=== PATIENT | male | born 1975 | race African-American/Black ===

== ENCOUNTER 2017-04-02 21:22 | Emergency (ER) | payer MEDICAID ==
[~2017-04-02] VITALS: Ht 180.3 cm; Wt 81.6 kg
[2017-04-02 21:30] VITALS: BP 121/77
[2017-04-02] MEDS ORDERED: Lidocaine 1% MPF 10mg/ml 5ml INJ ONE (21:45)
[2017-04-02] MEDS ORDERED: Lidocaine 1% MPF 10mg/ml 5ml ONE (21:46)
--- NOTE | 2017-04-02 22:14 | Emergency Room Report ---
History of Present Illness General Chief Complaint: Multiple Trauma/Fall Source: Patient Present Illness HPI Patient present with complaints of laceration to the right hand This occurred just about an hour prior to arrival Patient reports falling into a metal object Denies any headache or visual changes denies any neck pain denies any chest pressures of breath Pain is localized to the lacerated area 5/10 worse with touch and movement Patient last tetanus shot was 7 years ago Allergies: Coded Allergies: No Known Allergies (Unverified , 04/02/17) Patient History Past Medical History: see triage record Pertinent Family History: none Reviewed Nursing Documentation: PMH: Agreed, PSxH: Agreed Nursing Documentation-PMH Past Medical History: No Stated History Review of Systems All Other Systems: negative except mentioned in HPI Physical Exam Vital Signs Date Time Temp Pulse Resp B/P Pulse Ox O2 Delivery O2 Flow Rate FiO2 04/02/17 21:24 98.4 92 16 121/77 96 Sp02 EP Interpretation: reviewed, normal General Appearance: well appearing, no apparent distress Head: normocephalic, atraumatic Eyes: bilateral eye EOMI, bilateral eye PERRL ENT: normal pharynx Neck: supple, thyroid normal Respiratory: lungs clear Cardiovascular #1: regular rate, rhythm Gastrointestinal: non tender, soft Genitourinary: no CVA tenderness Musculoskeletal: other - Patient has a jagged laceration to the hypothenar eminence on the right hand proximal area, appears to be puncture component along with laceration, total length is approximately 3 cm Neurologic: alert, oriented x3, responsive Skin: normal color, no rash, other - Laceration as above Lymphatic: no adenopathy Procedures Laceration/Wound Repair Laceration/Wound Repair : Consent: Verbal Wound Location: upper extremity Wound's Depth, Shape: into muscle, irregular Wound Length (cm): 3 Wound Explored: contaminated Irrigated w/ Saline (ccs): 200 Betadine Prep?: Yes Anesthesia: 1% Lidocaine Volume Anesthetic (ccs): 4 Wound Debrided: moderate Wound Repaired With: sutures Suture Size/Type: 4:0 Number of Sutures: 6 Layer Closure?: No Patient Tolerated: Well Complications: None Progress After copious irrigation local sedation was performed with lidocaine injection, patient had 6, 4.0 monofilament sutures placed for appropriate approximation, there was also a small piece of skin that was still connected to a partial aspect of the hand which had to be removed. There was also 2 Steri-Strips applied to a more superficial aspect of the laceration Medical Decision Making Diagnostic Impression: Primary Impression: Hand laceration ER Course Patient had acute intervention with the hand as noted above with sutures X-ray imaging does not show any obvious foreign body Patient had tetanus shot updated Was given first antibiotic her given the complexity of the laceration the appearance Patient requires close outpatient followup Other X-Ray Diagnostic Results Other X-Ray Diagnostic Results : EP Interpretation: Yes Findings: no fractures, no dislocation, no soft tissue swelling Number of Views: 3 - right hand Last Vital Signs Date Time Temp Pulse Resp B/P Pulse Ox O2 Delivery O2 Flow Rate FiO2 04/02/17 21:30 98.4 89 16 121/77 96 Status: improved Disposition: HOME, SELF-CARE Condition: Improved Scripts Cephalexin* (KEFLEX*) 500 Mg Capsule 500 MG ORAL Q6H, #28 CAP 0 Refills Prov: LESIA PAREDES D.O. 04/02/17 Additional Instructions: Patient is provided with the discharge instructions notified to follow up with primary doctor in the next 2-3 days otherwise return to the er with any worsening symptoms. Please note that this report is being documented using [employer] technology. This can lead to erroneous entry secondary to incorrect interpretation by the dictating instrument. LESIA PAREDES D.O. April 02, 2017 22:14
[2017-04-02] MEDS ORDERED: Cephalexin 500mg cap ORAL ONE (22:15)
[2017-04-02] MEDS ORDERED: TdaP Vaccine 0.5ml Syr IM ONE (22:15)
[2017-04-02] MEDS ORDERED: KEFLEX500 MG ORAL (22:17)
[2017-04-02 22:32] VITALS: BP 121/77
--- NOTE | 2017-04-03 09:20 | Diagnostic Imaging Report ---
Indications: Fall, injury to medial aspect of palm of right hand with laceration, pain Technique: 3 views right hand. Findings: Comparison: None Hypokinetic soft tissues are mildly swollen. No acute fracture, dislocation, joint space widening , soft tissue foreign body/gas, or other acute changes are identified. Chronic appearing contour deformity fifth metacarpal head and neck. Prominent osteophyte at the margin of the fourth distal interphalangeal joint. No other chronic changes are demonstrated. IMPRESSION: Hyper thenar soft tissue swelling. No underlying acute fracture or foreign body. Old, healed fifth metacarpal boxer's fracture Fourth distal interphalangeal degenerative arthropathy .
== END 2017-04-02 22:32 | disposition home or self-care (01) ==
LOC: EDBD 21:22 → EMR 21:55
DX: S61.411A Laceration without foreign body of right hand, initial encounter (principal); W19.XXXA Unspecified fall, initial encounter; Y92.89 Other specified places as the place of occurrence of the external cause; Z23 Encounter for immunization; M19.041 Primary osteoarthritis, right hand
CPT/HCPCS: 12002; 73130; 90471; 90715; 96372; 99284; Z7502

== ENCOUNTER 2019-05-07 21:58 | Emergency (ER) | payer MEDICAID, SELFPAY ==
[~2019-05-07] VITALS: Ht 180.3 cm; Wt 86.2 kg
[~2019-05-07 21:58] MED LIST: KEFLEX500 MG ORAL
[2019-05-07 22:15] VITALS: BP 118/72
[2019-05-07] MEDS ORDERED: Tetanus/Diptheria/Pertussis IM ONE ×2 (22:15→22:28)
[2019-05-07] MEDS ORDERED: Bacitracin Oint UD TOPIC ONE ×2 (22:15→22:28)
--- NOTE | 2019-05-07 22:15 | Emergency Room Report ---
History of Present Illness General Chief Complaint: Medical Clearance Source: Patient Present Illness HPI The patient is in custody. He has some sores on his left inner arm. He says he has been picking at them. He denies any fevers or chills. He denies IV drug use at this time. His last tetanus was 2010. No chest pain, palpitations, nausea, vomiting, diarrhea, dysuria, abdominal pain , shortness of breath, depression, visual changes, headache. Allergies: Coded Allergies: No Known Allergies (Unverified , 04/02/17) Patient History Past Medical History: see triage record Social History: Reports: smoking Social History Narrative in custody Reviewed Nursing Documentation: PMH: Agreed; PSxH: Agreed Nursing Documentation-PMH Past Medical History: No Stated History Review of Systems All Other Systems: negative except mentioned in HPI Physical Exam Vital Signs Date Time Temp Pulse Resp B/P (MAP) Pulse Ox O2 Delivery O2 Flow Rate FiO2 05/07/19 22:07 98.2 75 18 118/72 (87) 94 Room Air Sp02 EP Interpretation: reviewed, normal General Appearance: well appearing, no apparent distress, GCS 15 Head: normocephalic, atraumatic Eyes: bilateral eye normal inspection, bilateral eye PERRL ENT: hearing grossly normal, normal voice, moist mucus membranes Neck: full range of motion, supple Respiratory: no respiratory distress, speaking full sentences Cardiovascular #1: regular rate, rhythm Cardiovascular #2: 2+ radial (L) Gastrointestinal: normal inspection Musculoskeletal: digits/nails normal, normal range of motion, non-tender Neurologic: alert, normal gait, grossly normal Psychiatric: mood/affect normal Skin: other - picking ulcers L inner forearm, no erythema or fluctuance Medical Decision Making Diagnostic Impression: Primary Impression: Skin ulcer Qualified Codes: L98.491 - Non-pressure chronic ulcer of skin of other sites limited to breakdown of skin ER Course Patient presents with ulcers of his skin in his left forearm. There is no evidence of cellulitis and the patient is not toxic at this time. Local antibiotics and tetanus are indicated. The patient is stable to be booked. Last Vital Signs Date Time Temp Pulse Resp B/P (MAP) Pulse Ox O2 Delivery O2 Flow Rate FiO2 05/07/19 22:35 98.2 84 18 120/74 96 Room Air Status: improved Disposition: D/C TO LAW ENFORCEMENT IN CUST Condition: Stable Scripts Bacitracin (Bacitracin) 28.4 Gm Oint...g. 1 APPLIC TOPIC BID, #20 GM Prov: Jose Hartman MD 05/07/19 Jose Hartman MD May 07, 2019 22:15
--- NOTE | 2019-05-07 22:15 | NUR ---
ER Nurse Note: Pt brought in by JOE d/u medical clearance for clear to book. Pt a&ox4, VSS, no signs of distress. Pt has 3 circular wounds on left arm. No drainage. Site clean and bandaged. Will continue to montior.
[2019-05-07] MEDS ORDERED: BACITRACIN15 GM TOPIC (22:16)
[2019-05-07 22:35] VITALS: BP 120/74
--- NOTE | 2019-05-07 22:35 | NUR ---
ER Nurse Note: Pt seen, treated, medically cleared for [facility] by ERMD. Discharge instuctions and prescriptions given with repeat verbalization by pt and [facility]. All orders completed per ERMD orders. Pt a&ox4, VSS, no signs of distress. Pt denies pain. ID band removed. Pt ambulaitory with steady gait, left with all belongings, left with own transportation with [facility].
== END 2019-05-07 22:35 ==
LOC: EMR 22:22
DX: L98.499 Non-pressure chronic ulcer of skin of other sites with unspecified severity (principal); Z23 Encounter for immunization; F17.200 Nicotine dependence, unspecified, uncomplicated
CPT/HCPCS: 90471; 90715; 99283